=== PATIENT | female | born 1960 | race Hispanic/Latino ===

== ENCOUNTER 2023-12-24 13:02 | Emergency (ER) | payer OTHER ==
--- OUTSIDE RECORDS SUMMARY | 2023-12-24 13:04 | XMS REPORT | Continuity of Care Document ---
Author Name Unknown Address [address] [place] [address] [facility] Address [address] [place] [address] Care Team Providers Care Tape Sewer Name Role Phone Martha Markham Attending Clinician Tania Chawla Attending Clinician David_Darby Attending Clinician Unavailable Beatrice Cleaning Attending Clinician Bessie Hernandez Attending Clinician GAYLORD_S Attending Clinician Unavailable Teodora Presley Attending Clinician Rashi_Shon Attending Clinician Unavailable OWENS_T Attending Clinician Unavailable Azul Gusman Attending Clinician David_Darby Admitting Clinician Unavailable GAYLORD_S Admitting Clinician Unavailable Rashi_M Admitting Clinician Unavailable OWENS_T Admitting Clinician Unavailable Payers Payer Name Policy Type Policy Number Effective Date Expirati on Date Source [facility] (MEDICARE REPLACEMENT HMO) [id number] 2021 00:00:00 Encounters Start Date/Time End Date/Time Encounter Type Admission Type Attending Clinicians Care Facility Care Department Encounter ID Source 2023-10-12 12:24:00 2023-10-12 12:54:00 Care Coordinati on Non Billable Martharamón Markham 2.16.840. [id number]. [id number] Z4C [facility] 2023-10-08 18:30:00 2023-10-08 19:00:00 Care [facility] Martha Rashi 2.16.840. [id number] 2.16.840.1. [id number] CLACXRWKUE KUG [facility] 2023-01-27 15:00:00 2023-01-27 15:30:00 Care Bijanjohn [place] 2.16.840. [id number] 2.16.840.1. [id number] ESC [facility] 2023-01-26 00:00:00 2023-01-26 00:00:00 Out[place] [facility] [place] [id number] [facility] 2023-01-26 00:00:00 2023-01-26 00:00:00 Outpatient [facility] [place] [id number] [facility] 2022-12-23 16:00:00 2022-12-23 16:30:00 Care Sergey Cleaning 2.16.840. [id number] 2.16.840.1. [id number] [facility] 2022-11-09 18:00:00 2022-11-09 19:00:00 CAV Bessie Hernandez 2.16.840. [id number] 2.16.840.1. [id number] [facility] 2022-10-29 00:00:00 2022-10-29 00:00:00 Outpatient [facility] [place] [id number] [facility] 2022-10-29 00:00:00 2022-10-29 00:00:00 Outpatient [place] [place] [id number] [facility] 2022-08-25 00:00:00 2022-08-25 00:00:00 Outpatient GAYLORD_S [facility] [place] [id number] [facility] 2022-05-08 17:00:00 2022-05-08 17:30:00 CAV Revisit: Gap Closure & Clinical Check-in Teodora Presley 2.16.840. [id number] 2.16.840.1. [id number] [facility] 2022-04-28 00:00:00 2022-04-28 00:00:00 Outpatient Sheth[facility]M [facility] [place] [id number] [facility] 2022-01-16 06:05:00 2022-01-16 06:05:00 Outpatient [facility]ENS[facility] [id number] [facility] 2022-01-02 19:00:00 2022-01-02 20:00:00 CAV Azul Uzma 2.16.840. [id number] 2.16.840.1. [id number] [facility] 2021 12:08:00 2021 12:08:00 Outpatient [facility] [id number] [facility] 2021-11-04 12:02:00 2021-11-04 12:02:00 Outpatient [facility] [id number] [facility] 2021-06-07 12:00:00 2021-06-07 12:00:00 Outpatient [facility] [id number] [facility]
--- NOTE | 2023-12-24 14:09 | RAD REPORT ---
EXAM DESCRIPTION: RAD - Elbow Right 3 View - 12/24/2023 1:59 pm CLINICAL HISTORY: RUE injury COMPARISON: No comparisons FINDINGS: No acute fracture or dislocation seen.
--- NOTE | 2023-12-24 14:09 | RAD REPORT ---
EXAM DESCRIPTION: RAD - Forearm Right - 12/24/2023 1:59 pm CLINICAL HISTORY: fall Fall, trauma, pain COMPARISON: No comparisons FINDINGS: No acute fracture or dislocation seen.
--- NOTE | 2023-12-24 14:10 | RAD REPORT ---
EXAM DESCRIPTION: RAD - Wrist Right 3 View - 12/24/2023 2:00 pm CLINICAL HISTORY: fall Pain COMPARISON: No comparisons FINDINGS: Linear fracture is seen involving the distal radius extending into radiocarpal joint. Frag ment displacement is minimal. No dislocation.
--- NOTE | 2023-12-24 14:15 | EDPHYS ---
Physician Documentation [facility] Name: Yaquelin Freitas Age: 62 yrs Sex: Female : 1960 Arrival Date: 12/24/2023 Time: 13:02 Bed 17 Private MD: ED Physician Josiah Maldonado HPI: 12/23 13:26 This 62 yrs old Female presents to ER via Ambulatory with complaints of Fall ec2 Injury, Arm Pain. 13:26 Patient arrives today for evaluation of right upper extremity pain. Reports that she ec2 was walking subsequently tripped and fell, landed on her knees and her right stretched arm. Patient planing of right elbow, forearm, wrist pain. No loss of consciousness, no blood thinner use.. Historical: - Allergies: 13:15 No Known Allergies; ap3 - PMHx: 13:15 Hypertension; Diabetes mellitus; Hypercholesterolemia; ap3 - Immunization history:: Client reports having NOT received the Covid vaccine. Pneumococcal vaccine is not up to date. - Infectious Disease History:: Denies. - Social history:: Smoking status: Patient reports the use of cigarette tobacco products, smokes one-half pack cigarettes per day. ROS: 13:26 Constitutional: as per hpi ec2 Exam: 13:26 Constitutional: GEN: NAD Head: atraumatic Eyes: EOMI Ears: External ears are ec2 normal. CV: regular rate LUNGS: no respiratory distress ABD: non-distended SKIN: no evidence of rashes MSK: TTP to the right wrist, forearm, elbow. Good range of motion, intact distal neurovascular status. NEURO: moves all extremities equally Vital Signs: 13:14 BP 161 / 79; Pulse 116; Resp 18; Temp 98.1; Pulse Ox 100% ; Weight 68.04 kg; Height 5 ap3 ft. 2 in. ; Pain 8/10; 14:00 BP 130 / 81; Pulse 98; Resp 18; Pulse Ox 98% ; Pain 9/10; nj1 13:14 Body Mass Index 27.44 (68.04 kg, 157.48 cm) ap3 13:14 Pain Scale: Adult ap3 14:00 Pain Scale: Adult nj1 MDM: 13:19 Patient medically screened. ec2 13:26 Data reviewed: vital signs. ED course: Patient arrives today for evaluation of a right ec2 upper extremity injury. Examination remarkable for MSK findings as above. Will obtain radiographs of the elbow, forearm and wrist. Differential diagnosis includes contusion, sprain, fracture.. 14:03 ED course: Elbow, forearm, wrist radiographs independently reviewed and interpreted by ec2 me, shows distal radius fracture, will put the patient in a sugar-tong splint, placed in sling, have patient follow-up with orthopedic surgery. . 12/23 13:26 Order name: Elbow Right 3 View XRAY; Complete Time: 14:14 ec2 12/23 13:26 Order name: Forearm Right XRAY; Complete Time: 14:14 ec2 12/23 13:26 Order name: Wrist Right 3 View XRAY; Complete Time: 14:14 ec2 12/23 14:03 Order name: Sugar Tong Forearm Splint; Complete Time: 15:09 ec2 Administered Medications: 14:39 Drug: Acetaminophen-Codeine PO (300 mg-30 mg) 2 tabs PO once; RASS on ADMIN: Combtv4, nj1 Very Agttd3, Agttd2, Rstlss1, AlertClm0, Drwsy-1, Lt Sdtn-2, Mod Sdtn-3, Dp Sdtn-4, UnArsble-5 Route: PO; 15:28 Follow up: Response: No adverse reaction nj1 Disposition Summary: 12/24/23 14:14 Discharge Ordered Notes: Location: Home ec2 Condition: Stable ec2 Diagnosis - Fracture of lower end of radius ec2 Followup: ec2 - With: Reinaldo Akbar MD - When: - Reason: Recheck today's complaints Discharge Instructions: - Discharge Summary Sheet ec2 - Wrist Fracture Treated With Immobilization, Cmby-wd-Wqis ec2 Forms: - Medication Reconciliation Form ec2 - Antibiotic Education ec2 - Prescription Opioid Use ec2 - Patient Portal Instructions ec2 - Leadership Thank You Letter ec2 Prescriptions: - acetaminophen-codeine 300-15 mg Oral tablet - take 1 tablet ORAL route every 8 hours; 10 tablet; Refills: 0, Product ec2 Selection Permitted Signatures: Dispatcher [employer] Trinidad Monzon RN RN ap3 Veronica Sandoval RN RN nj1 Josiah Maldonado MD MD ec2 Corrections: (The following items were deleted from the chart) 13:26 13:26 Wrist Right 3 View+RAD.RAD.BRZ ordered. EDMS EDMS
--- NOTE | 2023-12-24 14:15 | ER ---
Nurse's Notes [facility] Name: Yaquelin Freitas Age: 62 yrs Sex: Female : 1960 Arrival Date: 12/24/2023 Time: 13:02 Bed 17 Private MD: Diagnosis: Fracture of lower end of radius Presentation: 12/23 13:14 Chief complaint: Patient states: she fell approx 1200 today landing on her knees and ap3 right arm. patient denies hitting her head, and denies being on blood thinners. patient currently reports the pain in her right arm to be a 8/10 on the pain scale. Coronavirus screen: At this time, the client does not indicate any symptoms associated with coronavirus-19. Ebola Screen: No symptoms or risks identified at this time. Initial Sepsis Screen: Does the patient meet any 2 criteria? HR > 90 bpm. No. Patient's initial sepsis screen is negative. Does the patient have a suspected source of infection? No. Patient's initial sepsis screen is negative. Risk Assessment: Do you want to hurt yourself or someone else? Patient reports no desire to harm self or others. Onset of symptoms was December 24, 2023. 13:14 Method Of Arrival: Ambulatory ap3 13:14 Acuity: [place] 4 ap3 Triage Assessment: 13:17 General: Appears in no apparent distress. Behavior is calm, cooperative, appropriate ap3 for age. Pain: Complains of pain in right arm Pain currently is 8 out of 10 on a pain scale. Neuro: Level of Consciousness is awake, alert, obeys commands, Oriented to person, place, time, situation. Cardiovascular: Patient's skin is warm and dry. Respiratory: Airway is patent Respiratory effort is even, unlabored, Respiratory pattern is regular, symmetrical. Historical: - Allergies: 13:15 No Known Allergies; ap3 - PMHx: 13:15 Hypertension; Diabetes mellitus; Hypercholesterolemia; ap3 - Immunization history:: Client reports having NOT received the Covid vaccine. Pneumococcal vaccine is not up to date. - Infectious Disease History:: Denies. - Social history:: Smoking status: Patient reports the use of cigarette tobacco products, smokes one-half pack cigarettes per day. Screenin:17 Abuse screen: Denies threats or abuse. Nutritional screening: No deficits noted. ap3 Tuberculosis screening: No symptoms or risk factors identified. 14:00 [facility] ED Fall Risk Assessment (Adult) History of falling in the last 3 months, nj1 including since admission Yes- single mechanical fall (1 pt) Confusion or Disorientation No (0 pts) Intoxicated or Sedated No (0 pts) Impaired Gait No (0 pts) Mobility Assist Device Used No (0 pt) Altered Elimination No (0 pt) Score/Fall Risk Level 0 - 2 = Low Risk Oriented to surroundings, Maintained a safe environment, Hourly rounding (assess needs \T\ fall precautionary measures) done. Assessment: 14:00 General: Appears in no apparent distress. uncomfortable. nj1 14:00 Pain: Complains of pain in left arm Pain currently is 9 out of 10 on a pain scale. nj1 Neuro: Level of Consciousness is awake, alert, obeys commands, Oriented to person, place, time, situation. Cardiovascular: Patient's skin is warm and dry. Respiratory: Airway is patent Respiratory effort is even, unlabored. Musculoskeletal: Reports pain in left wrist since her fall today. Pain is 9 out of 10 on a pain scale. 15:09 Reassessment: Patient appears in no apparent distress at this time. Patient is alert, nj1 oriented x 3, equal unlabored respirations, skin warm/dry/pink. Awaiting on ED provider to ok splint. Vital Signs: 13:14 BP 161 / 79; Pulse 116; Resp 18; Temp 98.1; Pulse Ox 100% ; Weight 68.04 kg; Height 5 ap3 ft. 2 in. ; Pain 8/10; 14:00 BP 130 / 81; Pulse 98; Resp 18; Pulse Ox 98% ; Pain 9/10; nj1 13:14 Body Mass Index 27.44 (68.04 kg, 157.48 cm) ap3 13:14 Pain Scale: Adult ap3 14:00 Pain Scale: Adult nj1 ED Course: 13:05 Patient arrived in ED. mg5 13:15 Triage completed. ap3 13:17 Arm band placed on left wrist. ap3 13:19 Josiah Maldonado MD is Attending Physician. ec2 13:55 Veronica Sandoval, CRISTOBAL is Primary Nurse. nj1 14:00 Patient has correct armband on for positive identification. Bed in low position. Call nj1 light in reach. Side rails up X 1. 14:00 Provided Education on: call light, fall precautions. nj1 14:01 Elbow Right 3 View XRAY In Process Unspecified. EDMS 14:01 Forearm Right XRAY In Process Unspecified. EDMS 14:01 Wrist Right 3 View XRAY In Process Unspecified. EDMS 14:14 Reinaldo Akbar MD is Referral Physician. ec2 15:09 Orthoglass splint: Sugar tong splint applied on right arm. nj1 15:28 No provider procedures requiring assistance completed. nj1 15:28 Patient did not have IV access during this emergency room visit. nj1 Administered Medications: 14:39 Drug: Acetaminophen-Codeine PO (300 mg-30 mg) 2 tabs PO once; RASS on ADMIN: Combtv4, nj1 Very Agttd3, Agttd2, Rstlss1, AlertClm0, Drwsy-1, Lt Sdtn-2, Mod Sdtn-3, Dp Sdtn-4, UnArsble-5 Route: PO; 15:28 Follow up: Response: No adverse reaction nj1 Medication: 15:28 VIS not applicable for this client. nj1 Outcome: 14:14 Discharge ordered by . ec2 15:28 Discharged to home ambulatory, with family, nj1 15:28 Condition: stable 15:28 Discharge instructions given to patient, Instructed on discharge instructions, follow up and referral plans. medication usage, safety practices, Demonstrated understanding of instructions, follow-up care, medications, Prescriptions given X 1, 15:31 Patient left the ED. Signatures: Dispatcher [employer] Sofia Olson RN RN Trinidad Pérez RN RN 3 Veronica Sandoval RN RN nj1 Robbin [place] mg5 Josiah Maldonado MD MD ec2
[2023-12-24] MEDS ORDERED: CODEINE 30MG/APAP 300MG TAB ONE ×2 (14:37→14:44)
[2023-12-24 15:52] VITALS: BP 130/81; TEMP 98.1; O2SAT 98
== END 2023-12-24 15:31 | disposition home or self-care (01) ==
LOC: ER 13:02
PROC: 2W3CX1Z Immobilization of Right Lower Arm using Splint (ICD-10-PCS; principal; 2023-12-24)
DX: S52.501A Unspecified fracture of the lower end of right radius, initial encounter for closed fracture (principal); W01.0XXA Fall on same level from slipping, tripping and stumbling without subsequent striking against object, initial encounter
CPT/HCPCS: 99283